=== PATIENT | female | born 1985 ===

== ENCOUNTER 2021-05-28 22:07 | Outpatient (CLI) | payer OTHER ==
[2021-05-28 22:55] VITALS: BP 98/58
[2021-05-28] MEDS ORDERED: LACTATED RINGERS 1,000 ML IV ONE (23:27)
[2021-05-28 23:49] LABS: Bacteria,Urine 1+ /HPF (Negative); Bilirubin,Urine NEG (Negative); Blood,Urine NEG (Negative); Color,Urine Yellow (Yellow); Hyaline Casts,Urine 2 /LPF; Mucus,Urine 1+ /HPF; Urobilinogen,Urine < 2.0 mg/dL (<2.0)
== END 2021-05-29 08:00 | disposition home or self-care (01) ==
LOC: EDSTATUS 22:18 → TRG 22:19 → APU 22:40 → TRG 05-29 08:00
PROVIDERS: ATTEND Obstetrics & Gynecology Gynecology
DX: O09.892 Supervision of other high risk pregnancies, second trimester (principal); Z3A.24 24 weeks gestation of pregnancy
CPT/HCPCS: 59025; 81001